=== PATIENT | female | born 1985 | race Caucasian/White ===

== ENCOUNTER 2024-01-20 08:40 | Outpatient (CLI) | payer OTHER, SELFPAY | END 2024-01-20 08:41 | disposition home or self-care (01) | PROVIDERS: PCP Emergency Medicine; Visit Provider Physician Assistant Medical | DX: Z00.00 Encounter for general adult medical examination without abnormal findings (principal); Z13.0 Encounter for screening for diseases of the blood and blood-forming organs and certain disorders involving the immune mechanism; Z13.6 Encounter for screening for cardiovascular disorders; Z11.59 Encounter for screening for other viral diseases; Z11.3 Encounter for screening for infections with a predominantly sexual mode of transmission | CPT/HCPCS: 80053; 80061; 84443; 86231; 86258; 86364; 86703; 86803 ==

== ENCOUNTER 2024-02-29 08:21 | Outpatient (CLI) | payer OTHER, SELFPAY ==
[2024-02-29 14:47] LABS: Chlamydia DNA Amplified* NOT DETECTED (No Detected); GC DNA Amplified* NOT DETECTED (No Detected)
== END 2024-02-29 08:22 | disposition home or self-care (01) ==
PROVIDERS: PCP Emergency Medicine; Visit Provider Physician Assistant Medical
DX: Z00.00 Encounter for general adult medical examination without abnormal findings (principal); R76.8 Other specified abnormal immunological findings in serum; K90.0 Celiac disease; Z11.3 Encounter for screening for infections with a predominantly sexual mode of transmission
CPT/HCPCS: 82306; 82607; 82746; 83540; 83550; 87491; 87591; 87624; 87625; 88141; 88142

== ENCOUNTER 2024-04-28 10:08 | Outpatient (CLI) | payer OTHER, SELFPAY ==
--- NOTE | 2024-04-28 10:15 | CRLHL7_ITS ---
For Patients: As a result of the Century Cures Act, medical imaging exams and procedure reports are released immediately into your electronic medical record. You may view this report before your referring provider. If you have questions, please contact your health care provider. BILATERAL SCREENING MAMMOGRAM WITH COMPUTER-AIDED DETECTION AND TOMOSYNTHESIS TECHNIQUE: CC and MLO views were obtained. These mammographic images have been obtained using full-field digital technique. These mammographic images were interpreted with the benefit of computer-aided detection. Breast Tomosynthesis was used in this interpretation. COMPARISON FILM: 01/01/16. FINDINGS: The breasts are heterogeneously dense, which may obscure small masses. IMPRESSION: There is no radiographic evidence for malignancy. ASSESSMENT: BI-RADS Category 1: Negative RECOMMENDATION: Routine screening mammogram in 1 year. A lay language report of this examination will be provided to the patient. Damion Nevarez M.D. Diagnostic Radiologist [email or web address] SP/Dictated by: Damion Nevarez MD @ 05/02/2024 12:51:00 PM (Electronically Signed)
== END 2024-04-28 10:09 | disposition home or self-care (01) ==
LOC: MAMMO 10:09
PROVIDERS: PCP Emergency Medicine; Visit Provider Physician Assistant Medical
DX: Z12.31 Encounter for screening mammogram for malignant neoplasm of breast (principal); R92.333 Mammographic heterogeneous density, bilateral breasts
CPT/HCPCS: 77063; 77067

== ENCOUNTER 2025-01-26 08:28 | Outpatient (CLI) | payer OTHER, SELFPAY | END 2025-01-26 08:29 | disposition home or self-care (01) | PROVIDERS: PCP Emergency Medicine; Visit Provider Physician Assistant Medical | DX: R76.8 Other specified abnormal immunological findings in serum (principal); K90.0 Celiac disease; Z13.0 Encounter for screening for diseases of the blood and blood-forming organs and certain disorders involving the immune mechanism; Z13.6 Encounter for screening for cardiovascular disorders | CPT/HCPCS: 80053; 80061; 84443; 86376 ==

== ENCOUNTER 2025-02-10 14:16 | Outpatient (CLI) | payer OTHER, SELFPAY ==
--- NOTE | 2025-02-10 14:30 | CRLHL7_ITS ---
For Patients: As a result of the 21st Century Cures Act, medical imaging exams and procedure reports are released immediately into your electronic medical record. You may view this report before your referring provider. If you have questions, please contact your health care provider. BILATERAL BREAST MRI WITHOUT AND WITH GADOLINIUM CLINICAL HISTORY: 39-year-old female with elevated risk of breast cancer due to BRCA mutation. INDICATION FOR BREAST MRI: Screening breast MRI in this high-risk woman. COMPARISON STUDIES: Mammogram 01/01/2016, 04/28/2024, no prior breast MRI is available for comparison. CONTRAST: 15 mL Dotarem IV. TECHNIQUE: The patient was positioned prone using a breast coil. Multiple imaging sequences were obtained using 1-1.5 mm thick slices with no gap. The image sequences include T2-weighted STIR in the axial plane, T1-weighted nonfat-saturated gradient echo in the axial plane, pre- and post-contrast T1-weighted FLASH 3D with fat suppression in the axial plane, and T1-weighted FLASH high resolution 3D with fat suppression in the sagittal plane. Image post-processing was performed on a [employer] workstation. Complex 3D rendering including maximum intensity projections (MIPS) and volumetric renderings were obtained to optimize visualization of the extent of pathology and relationship to the nipple, skin, and chest wall. This aids in determining feasibility of breast conservation surgery. Subtraction, multiplanar reconstruction, mean curve determination, and angiogenesis mapping were also performed. The study was technically adequate. FINDINGS: Amount of Fibroglandular Tissue: Heterogeneous fibroglandular tissue. Breast Background Enhancement: Moderate. RIGHT Breast: No suspicious areas of enhancement. LEFT Breast: No suspicious areas of enhancement. Lymph Nodes: No adenopathy. IMPRESSIONS AND RECOMMENDATIONS: Negative, there is no MRI evidence of malignancy. Continue annual screening mammography and as clinically indicated screening breast MRI. The mammogram and MRI should be offset by six-month intervals of time. BI-RADS Category 1: Negative Dictated by Arlen Spencer MD @ 02/13/2025 12:58:44 PM /Dictated by: Arlen Spencer MD @ 02/13/2025 12:59:00 PM (Electronically Signed)
== END 2025-02-10 14:17 | disposition home or self-care (01) ==
LOC: MRI 14:17
PROVIDERS: PCP Emergency Medicine; Visit Provider Physician Assistant Medical
DX: Z91.89 Other specified personal risk factors, not elsewhere classified (principal); Z15.01 Genetic susceptibility to malignant neoplasm of breast; Z15.09 Genetic susceptibility to other malignant neoplasm; Z12.39 Encounter for other screening for malignant neoplasm of breast
CPT/HCPCS: 77049; C8908; C8937; A9575

== ENCOUNTER 2025-02-13 08:05 | Outpatient (CLI) | payer OTHER, SELFPAY ==
--- NOTE | 2025-02-13 | CRLHL7_ITS ---
For Patients: As a result of the Century Cures Act, medical imaging exams and procedure reports are released immediately into your electronic medical record. You may view this report before your referring provider. If you have questions, please contact your health care provider. INDICATION: Genetic Susceptibility to Malignant neoplasm. (BRCA Gene) COMPARISON: 12/21/2020 TECHNIQUE: 2D foster-scale and color Doppler images were acquired of the pelvis using a transabdominal and transvaginal approach. Transvaginal imaging performed to better visualize the endometrial stripe and ovaries. FINDINGS: Right fundal fibroid measures 1.4 x 1.2 x 0.9 cm. Uterus measures 9.4 cm in length by 4.2 cm in AP diameter by 6.2 cm in transverse dimension. The endometrial lining measures 10.4 mm in composite thickness. The right ovary measures 4.0 x 2.6 x 2.6 cm in size and the left ovary measures 5.8 x 2.3 x 3.0 cm. The ovaries demonstrate normal arterial and venous blood flow on color Doppler analysis. There are no suspicious fluid collections within the cul-de-sac. Nonvascular hypoechoic right ovarian cyst measures 1.4 x 1.3 x 1.3 cm. Simple cyst adjacent to or extending from the left ovary measures 4.9 x 2.2 x 2.9 cm. Additional left ovarian cyst with thin internal septations measures 1.7 x 1.6 x 1.0 cm. IMPRESSION: 1.4 cm hemorrhagic right ovarian cyst. 4.9 cm simple cyst in the left adnexa. Benign left ovarian cyst with internal septations without color blood flow measures 1.7 cm. Fundal fibroid measures 1.4 cm. Endometrial thickness 10.4 millimeters. Dictated by Damion Nevarez MD @ 02/13/2025 3:45:31 PM (Electronically Signed)
--- NOTE | 2025-02-13 08:15 | CRLHL7_ITS ---
For Patients: As a result of the Century Cures Act, medical imaging exams and procedure reports are released immediately into your electronic medical record. You may view this report before your referring provider. If you have questions, please contact your health care provider. CLINICAL HISTORY: Epigastric Pain COMPARISON: None TECHNIQUE: Real time foster scale imaging and color Doppler analysis was performed of the abdomen. FINDINGS: Sonographic imaging demonstrates normal size and uniform echotexture of the liver. The spleen is of normal size. The pancreas appears normal. The proximal abdominal aorta and IVC appear normal. There is no evidence of ascites. The gallbladder is of normal size and there is an echogenic focus associated with the gallbladder wall which measures 3 x 2 x 2 millimeters. A 2nd adherent echogenic focus is present which measures 3 x 3 x 3 millimeters. The gallbladder wall measures 1 mm in thickness. The common bile duct measures 4 mm in size within the janeen hepatis. The kidneys appear symmetric. The right kidney measures 12.4 cm in length and the left kidney measures 11.1 cm. There is no evidence of a renal calculus or hydronephrosis. IMPRESSION: Gallbladder polyps measure up to 3 millimeters. Remainder unremarkable. Dictated by Damion Nevraez MD @ 02/13/2025 3:40:22 PM (Electronically Signed)
== END 2025-02-13 08:06 | disposition home or self-care (01) ==
LOC: US 08:06
PROVIDERS: PCP Emergency Medicine; Visit Provider Physician Assistant Medical
DX: R10.13 Epigastric pain (principal); K82.4 Cholesterolosis of gallbladder; Z15.01 Genetic susceptibility to malignant neoplasm of breast; Z15.09 Genetic susceptibility to other malignant neoplasm; Z87.42 Personal history of other diseases of the female genital tract
CPT/HCPCS: 76700; 76830; 76856